=== PATIENT | male | born 1980 | race Two or more races ===

== ENCOUNTER → 2023-11-12 | Day surgery (SDC) | payer OTHER ==
[2023-11-09 10:10] VITALS: BMI 30.4
[~2023-11-12] MED LIST: ACETAMINOPHEN INJECTION 100 ML ONE; BACITRACIN ZINC 15 GM TUBE TOPICAL OINTMENT ONE; BUPIVACAINE HCL/PF 0.5% (5MG/ML) 10 ML VIAL ONE; DEXAMETHASONE SOD PHOSPHATE 4 MG/1 ML VIAL ONE; LACTATED RINGERS SOLUTION 1,000 ML IV SCH; LIDOCAINE HCL 1%, 10 MG/ML (20ML VIAL) ONE; METOCLOPRAMIDE HCL INJECTION 10 MG/2 ML VIAL ONE; MIDAZOLAM HCL 2 MG/2 ML SINGLE DOSE VIAL ONE; ONDANSETRON 4 MG/2 ML VIAL IVPUSH PRN; ONDANSETRON 4 MG/2 ML VIAL ONE; PROPOFOL 20 ML ONE; SEVOFLURANE 250 ML BTL ONE; ceFAZolin SODIUM 1 GM VIAL ONE; oxyCODONE HCL 5 MG TABLET PO PRN
[2023-11-12] MEDS: ceFAZolin SODIUM 1 GM VIAL IVPB ONE (14:09)
[2023-11-12] MEDS: BUPIVACAINE HCL/PF 0.5% (5 MG/ML) 30 ML VIAL IJ ONE (14:11)
[2023-11-12] MEDS: LIDOCAINE HCL 1%, 10 MG/ML (20ML VIAL) NR ONE (14:11)
[2023-11-12] MEDS: BACITRACIN ZINC 15 GM TUBE TOPICAL OINTMENT TP ONE (14:40)
[2023-11-12 16:45] VITALS: BP 154/89; PULSE 82; RESP 18; TEMP 97.8
== END | disposition home or self-care (01) ==
LOC: JASU-SURG 04:15
PROVIDERS: ATTEND Urology
PROC: 0VTTXZZ Resection of Prepuce, External Approach (ICD-10-PCS; principal; 2023-11-12 13:00)
DX: N47.1 Phimosis (principal); N48.89 Other specified disorders of penis
CPT/HCPCS: 88304-TC; 94760; J0131